=== PATIENT | female | born 1995 | race Caucasian/White ===

== ENCOUNTER 2018-08-17 14:39 | Inpatient (IN) | payer OTHER ==
[2018-08-17] MEDS ORDERED: METHYLERGONOVINE 0.2 MG/ML 1 ML AMP IM PRN (16:02)
[2018-08-17] MEDS ORDERED: LIDOCAINE 0.5% (PF) 5 MG/ML (50 ML SDV) SQ PRN (16:02)
[2018-08-17] MEDS ORDERED: CARBOPROST TROMETHAMINE 250 MCG/ML 1 ML AMP IM PRN (16:02)
[2018-08-17] MEDS ORDERED: PENICILLIN G POTASSIUM 5,000,000 UNIT in DEXTROSE 5% IN WATER 100 ML IVPB STA ×2 (16:02)
[2018-08-17] MEDS ORDERED: TERBUTALINE 1 MG/ML VIAL SQ PRN (16:02)
[2018-08-17] MEDS ORDERED: OXYTOCIN 10 UNIT/ML 1 ML VIAL IM PRN (16:02)
[2018-08-17] MEDS: LACTATED RINGERS 1,000 ML IV SCH ×2 (16:34→18:47)
[2018-08-17 16:52] LABS: Basophils % (A) 0 %; Eosinophils # (A) 0.2 k/uL (0-0.7); Eosinophils % (A) 1 %; HCT 33.3 % (34.0-46.0); Lymphocytes # (A) 1.4 k/uL (1.0-4.8); Lymphocytes % (A) 11 %; MCH 31.8 pg (25.0-35.0); MCV 88.4 fL (80.0-100.0); Mean Platelet Volume 7.6; Monocytes # (A) 0.6 k/uL (0-1.0); Monocytes % (A) 5 %; Neutrophils # (A) 10.5 k/uL (1.3-7.7); Neutrophils % (A) 82 %; Platelet Count 289 k/uL (150-450); RBC 3.77 m/uL (3.80-5.40); WBC 12.9 k/uL (3.8-10.6)
[2018-08-17 16:58] LABS: Amorphous Sediment,Urine Rare /hpf; Appearance,Urine Clear (Clear); Bacteria,Urine Rare /hpf; Bilirubin,Urine Negative (Negative); Blood,Urine Negative (Negative); Color,Urine Yellow; Glucose,Urine (UA) Negative (Negative); Ketones,Urine Negative (Negative); Leukocyte Esterase,Urine Small (Negative); Mucus,Urine Rare /hpf; Nitrite,Urine Negative (Negative); Protein,Urine Negative (Negative); RBC,Urine <1 /hpf (0-5); Specific Gravity,Urine 1.011 (1.001-1.035); Squamous Epithelial Cell,Urine 10 /hpf (0-4); Urobilinogen,Urine <2.0 mg/dL (<2.0); WBC,Urine 1 /hpf (0-5)
--- NOTE | 2018-08-17 17:00 | P.HPOB ---
History of Present Illness H&P Date: 08/17/18 Chief Complaint: Abdominal cramping This is a 23-year-old 2 para 1001 woman who has an estimated due date of 09/10/2018 based on second trimester ultrasound who presents to labor and delivery with complaints of lower abdominal cramping. She has not had care since April when she moved to the area. She is not yet established with an stockholder. Prior to that she was seen in the [place] area and did have some care there including an ultrasound to establish her due date. Upon initial evaluation in labor and delivery triage her cervix was 3 cm dilated and 1 hour later she was 5 cm dilated despite complaining of only the mild contractions. She denies leakage of fluid or vaginal bleeding. Obstetric history is significant for a term normal spontaneous vaginal delivery in 2017 of a 7 lbs. 10 oz. male . She denies complications with that . Attempt was made to obtain record from [place] however at this time and is unavailable. labs are pending. Review of Systems All systems: negative Past Medical History Past Medical History: No Reported History Additional Past Medical History / Comment(s): 2017 History of Any Multi-Drug Resistant Organisms: None Reported Past Surgical History: No Surgical Hx Reported Past Anesthesia/Blood Transfusion Reactions: No Reported Reaction Past Psychological History: No Psychological Hx Reported Smoking Status: Never smoker Past Alcohol Use History: None Reported Past Drug Use History: None Reported Medications and Allergies Home Medications Medication Instructions Recorded Confirmed Type No Known Home Medications 08/17/18 08/17/18 History Allergies Allergy/AdvReac Type Severity Reaction Status Date / Time No Known Allergies Allergy Verified 08/17/18 14:52 Exam Vital Signs Temp Pulse Resp BP 08/17/18 14:54 98.0 F 93 16 122/72 Intake and Output 08/17/18 08/17/18 08/17/18 06:59 14:59 22:59 Other: Weight 83.325 kg This is a pleasant, comfortable appearing, visibly gravid female. Targeted physical exam is performed. Abdomen is on gravid with fundal height consistent with gestational age of 36 weeks. On pelvic examination she is 5 cm dilated, 80% effaced and the vertex is in the -1 station. Artificial rupture of membranes is undertaken and copious clear fluid is noted. heart tones are reassuring by external monitoring and she is irregularly shona every 6-10 minutes. Results Result Diagrams: 08/17/18 16:25 Abnormal Lab Results - Last 24 Hours (Table) 08/17/18 Range/Units 16:25 WBC 12.9 H (3.8-10.6) k/uL RBC 3.77 L (3.80-5.40) m/uL Hct 33.3 L (34.0-46.0) % Neutrophils # 10.5 H (1.3-7.7) k/uL Assessment and Plan (1) 36 to 37 weeks gestation of Current Visit: Yes Status: Acute Code(s): WCA2490 - SNOMED Code(s): 071336964 (2) Insufficient care Current Visit: Yes Status: Acute Code(s): O09.30 - SUPRVSN OF PREG W INSUFFICIENT ANTENAT CARE, UNSP TRIMESTER SNOMED Code(s): 0793156295087 (3) Spontaneous onset of labor Current Visit: Yes Status: Acute Code(s): IMN4818 - SNOMED Code(s): 96554546 Plan: This is a 23-year-old 2 para 1001 woman who presents at 36-5/7 weeks gestation with minimal care. She is in early active labor. Group B strep status is unknown and therefore prophylactic antibiotics have been ordered. lab panel is pending. status is currently reassuring by external monitoring. Anticipate normal spontaneous vaginal delivery.
[2018-08-17 17:10] LABS: Amphetamine Screen,Urine Not Detected (NotDetected); Barbiturate Screen,Urine Not Detected (NotDetected); Benzodiazepines Screen,Urine Not Detected (NotDetected); Cocaine Screen,Urine Not Detected (NotDetected); Methadone Screen, Urine Not Detected (NotDetected); Opiate Screen,Urine Not Detected (NotDetected); Oxycodone Screen, Urine Not Detected (NotDetected); Phencyclidine Screen,Urine Not Detected (NotDetected); Tricyclic Antidepressant,Urine Not Detected (NotDetected); Urn Cannabinoid Scrn Not Detected (NotDetected)
[2018-08-17 17:14] VITALS: BMI 29.6
[2018-08-17] MEDS ORDERED: ROPIVACAINE 100 MG, fentaNYL (PF) 200 MCG in SODIUM CHLORIDE 0.9% 76 ML EPIDURAL ONE (19:15)
[2018-08-17] MEDS: OXYTOCIN 20 UNITS/1000 ML NS 1,000 ML IV SCH (20:04)
[2018-08-17] MEDS ORDERED: SIMETHICONE 80 MG CHEWABLE PO PRN (21:13)
[2018-08-17] MEDS ORDERED: ZOLPIDEM 5 MG TAB PO PRN (21:13)
[2018-08-17] MEDS ORDERED: LANOLIN CREAM 5 GM TUBE TOPICAL PRN (21:13)
[2018-08-17] MEDS ORDERED: diphenhydrAMINE 25 MG CAP PO PRN (21:13)
[2018-08-17] MEDS ORDERED: BENZOCAINE/MENTHOL SPRAY 1 GM/SPRAY AEROSOL TOPICAL PRN (21:13)
[2018-08-17] MEDS ORDERED: WITCH HAZEL 1 EACH MED..PAD TOPICAL PRN (21:13)
[2018-08-17] MEDS ORDERED: diphenhydrAMINE 50 MG CAP PO PRN (21:13)
[2018-08-17] MEDS ORDERED: diphenhydrAMINE 50 MG/ML 1 ML VIAL IVP PRN ×2 (21:13)
[2018-08-17] MEDS ORDERED: HYDROCORTISONE 2.5% RECTAL CREAM 30 GM TUBE RECTAL PRN (21:13)
--- NOTE | 2018-08-17 21:13 | P.PROBDLV ---
Vaginal Delivery Note - . Vaginal Delivery Note: Findings: Male infant in the vertex presentation with Apgars of 8 at 1 minute and 9 at 5 minutes. Weight pending. Intact, three-vessel cord placenta. No perineal lacerations. Delivery summary: This is a 23-year-old 2 para 1001 woman who presented at 36-5/7 weeks gestation gestation with minimal care. She was in early active labor. On admission she was 5 cm dilated and progressed to 8 cm at which time she had received an epidural anesthetic. She received Pitocin augmentation at this point and reach complete cervical dilation after approximately 5 minute first stage of labor. heart tones were stable throughout the first stage of labor. With strong maternal effort she did push the baby rapidly to at which time she was repositioned, prepped and draped in the dorsal modified lithotomy position. With additional maternal effort the head delivered from the left occiput anterior position. The anterior followed by the posterior shoulders were delivered without difficulty and the rest the infant was delivered onto the field. The nose and mouth were bulb suctioned. The was placed on the maternal abdomen. The cord was clamped and cut after it stopped pulsating. Apgars were 8 at 1 minute and 9 at 5 minutes. Weight is pending. The perineum was inspected and no lacerations were noted. An intact, three-vessel cord placenta was delivered after approximately 4 minute third stage of labor. The patient received Pitocin following delivery of the placenta. The vagina and cervix were further inspected and no lacerations were noted. The uterus was massaged and was noted to be firm at the level of the umbilicus. EBL was less than 150 mL's. All counts were correct. Mother and were doing well post delivery in the room.
[2018-08-17] MEDS ORDERED: OXYTOCIN 20 UNITS/1000 ML NS 1,000 ML IV SCH (21:15)
[2018-08-18] MEDS: ACETAMINOPHEN TAB 325 MG TAB PO PRN ×2 (00:22→23:40)
[2018-08-18 08:08] LABS: Basophils % (A) 0 %; Eosinophils # (A) 0.1 k/uL (0-0.7); Eosinophils % (A) 1 %; HCT 31.2 % (34.0-46.0); HGB 10.5 gm/dL (11.4-16.0); Lymphocytes # (A) 1.5 k/uL (1.0-4.8); Lymphocytes % (A) 13 %; MCH 30.2 pg (25.0-35.0); MCHC 33.7 g/dL (31.0-37.0); MCV 89.6 fL (80.0-100.0); Mean Platelet Volume 7.3; Monocytes # (A) 0.7 k/uL (0-1.0); Monocytes % (A) 6 %; Neutrophils # (A) 9.2 k/uL (1.3-7.7); Neutrophils % (A) 79 %; Platelet Count 286 k/uL (150-450); RBC 3.49 m/uL (3.80-5.40); RDW 14.3 % (11.5-15.5); WBC 11.7 k/uL (3.8-10.6)
[2018-08-18] MEDS: IBUPROFEN 600 MG TAB PO PRN ×2 (08:13→20:34)
[2018-08-18] MEDS: SENNOSIDES-DOCUSATE SODIUM 1 EACH TAB PO SCH ×2 (08:14→21:23)
--- NOTE | 2018-08-18 08:35 | P.PNOBGVD ---
Subjective - Subjective Principal diagnosis: day 1 Interval history: Complaining of some uterine cramping, managed with ibuprofen. Decreasing lochia. Patient reports: Reports appetite normal, Reports voiding normally, Reports pain well controlled, Reports ambulating normally : doing well (In special care nursery) Objective - Latest Vital Signs Latest vital signs: Vital Signs Temp Pulse Pulse Resp BP 08/18/18 08:00 97.4 F L 76 18 136/88 08/18/18 04:00 98.2 F 60 16 116/74 08/18/18 00:00 98.1 F 88 16 115/62 08/17/18 23:15 106 H 16 116/57 08/17/18 22:45 116 H 16 139/69 08/17/18 22:15 97 16 130/61 08/17/18 22:00 69 16 126/68 08/17/18 21:45 78 16 120/58 08/17/18 21:30 89 16 141/62 08/17/18 21:15 97.4 F L 72 16 120/63 08/17/18 16:01 98.0 F 93 16 122/72 08/17/18 14:54 98.0 F 93 16 122/72 Intake and Output 08/17/18 08/18/18 08/18/18 22:59 06:59 14:59 Intake Total 1100 Balance 1100 Intake: IV 1000 Lactated Ringers 1,000 ml 1000 @ 125 mls/hr IV .Q8H [facility] Rx#:[id number] Intake, IV Titration 100 Amount Penicillin G Potassium 5, 100 000,000 unit In Dextrose 5% in Water 100 ml @ 100 mls/hr IVPB ONCE STA Rx#: [id number] Other: # Voids 1 1 Weight 83.325 kg - Exam Extremities: Present: normal Abdomen: Present: normal appearance, soft Uterus: Present: normal, firm. Absent: tenderness - Labs Labs: Abnormal Lab Results - Last 24 Hours (Table) 08/17/18 08/17/18 08/18/18 Range/Units 16:25 16:25 07:14 WBC 12.9 H 11.7 H (3.8-10.6) k/uL RBC 3.77 L 3.49 L (3.80-5.40) m/uL Hgb 10.5 L (11.4-16.0) gm/dL Hct 33.3 L 31.2 L (34.0-46.0) % Neutrophils # 10.5 H 9.2 H (1.3-7.7) k/uL Ur Leukocyte Esterase Small H (Negative) Ur Squamous Epith Cells 10 H (0-4) /hpf Amorphous Sediment Rare H (None) /hpf Urine Bacteria Rare H (None) /hpf Urine Mucus Rare H (None) /hpf Assessment and Plan (1) 36 to 37 weeks gestation of Current Visit: Yes Status: Acute Code(s): [id number] - SNOMED Code(s): 198424989 (2) Insufficient care Current Visit: Yes Status: Acute Code(s): O09.30 - SUPRVSN OF PREG W INSUFFICIENT ANTENAT CARE, UNSP TRIMESTER SNOMED Code(s): 7237522973958 (3) Spontaneous onset of labor Current Visit: Yes Status: Acute Code(s): TQR8162 - SNOMED Code(s): 78518776 (4) Normal spontaneous vaginal delivery Current Visit: Yes Status: Acute Code(s): O80 - ENCOUNTER FOR FULL-TERM UNCOMPLICATED DELIVERY SNOMED Code(s): 51687574 (5) Rh negative, maternal Current Visit: Yes Status: Acute Code(s): O09.899 - SUPERVISION OF OTHER HIGH RISK PREGNANCIES, UNSP TRIMESTER; Z67.91 - UNSPECIFIED BLOOD TYPE, RH NEGATIVE SNOMED Code(s): 847222888 Plan: day 1 status post normal spontaneous vaginal delivery. and special care nursery for observation. Anticipate discharge home tomorrow.
--- NOTE | 2018-08-18 08:45 | P.MSEPDOC ---
Presenting Problems - Arrival Data Date of Arrival on Unit: 08/17/18 Time of Arrival on Unit: 16:00 Mode of Transport: Ambulatory - Complaint OB-Reason for Admission/Chief Complaint: Pain Comment: Intermittent pelvic and back pain occuring for a few days that happens after extended periods of laying down or walking. Medical History - Information : 2 Para: 1 Term: 1 : 0 Abortions: Spontaneous or Elective: 0 Number of Living Children: 1 - Gestational Age Gestational Age by CARISA (wks/days): 36 Weeks and 4 Days - History Comment: No care since 04/2018, GBS unknown Review of Systems - Review of Systems Constitutional: No problems Breast: No problems ENT: No problems Cardiovascular: No problems Respiratory: No problems Gastrointestinal: No problems Genitourinary: No problems Musculoskeletal: No problems Neurological: No problems Skin: No problems Vital Signs - Temperature Temperature: 97.4 F Temperature Source: Oral - Pulse Pulse Oximetery Pulse Rate: 60 Pulse Assessment Method: Automatic Cuff Left Brachial Pulse Rate: 76 Pulse Assessment Method: Automatic Cuff - Respirations Respiratory Rate: 18 Oxygen Delivery Method: Room Air - Blood Pressure Sitting Blood Pressure: 136/88 Blood Pressure Mean: 104 Blood Pressure Source: Automatic Cuff Medical Screen Scoring (Pre) - Cervical Exam Dilation: 1-3 cm = 1 Effacement: More than 50% = 2 Membranes: Intact - Uterine Contractions Frequency: > 5 minutes apart = 1 Duration: > 40 seconds = 2 Intensity: N/A - Maternal Vital Signs Maternal Temperature: N/A Maternal Blood Pressure: N/A Signs of Preeclampsia: N/A Maternal Respirations: N/A - Pain Assessment Pain Location and Character: Pelvic Pain Scale Used: Numeric (1 - 10) Pain Intensity: 0 - Maternal Trauma Maternal Trauma: N/A - Assessment Baseline FHR: 135 Heart Rate - NICHD Category: Category I (Normal) = 0 NST: Reactive Position: N/A Station: N/A - Total Score Total Score (Pre): 6 - Level of Risk Level of Risk: Medium (6-9) Physician Notification (Pre) - Physician Notified Physician Notified Date: 08/17/18 Physician Notified Time: 14:43 Physician/Practitioner Notifed:: Dr. Pineda - Notification Comment Comment: Orders given check cervix, and recheck in one hour if no change made, okay to discharge patient home with instructions. Call physician at [phone] with vaginal exam, orders given to admit patient for labor, initiate antibiotics for gbs unknown and obtain blood work. Disposition - Disposition OB Disposition: Admit, LDRP Suite Transferred to:: Suite 14 I agree with the RN Medical Screening Exam: Yes Risk & Benefit of care provided described in d/c instruction: Yes Diagnosis: o8o
[2018-08-18 13:51] LABS: HIV 1 AB Non-Reactive (Non-Reactive); HIV AB P24 Non-Reactive (Non-Reactive); HIV P24 AG Non-Reactive (Non-Reactive)
[2018-08-18] MEDS ORDERED: DIPH,PERTUS(ACELL)TETVAC-LF 0.5 ML VIAL IM ONE (18:22)
[2018-08-18] MEDS ORDERED: INFLUENZA VACCINE (6 MOS+) 60 MCG/0.5 ML SYRINGE IM ONE (18:23)
[2018-08-18] MEDS ORDERED: Rhogam IMMUNE GLOBULIN 1,500 UNIT/1 ML IM ONE (18:49)
[2018-08-18] MEDS: PENICILLIN G POTASSIUM 2,500,000 UNIT in DEXTROSE 5% IN WATER 100 ML IVPB SCH ×6 (19:49→21:24)
[2018-08-18] MEDS: OXYTOCIN 20 UNITS/1000 ML NS 1,000 ML IV SCH (21:23)
[2018-08-19] MEDS: IBUPROFEN 600 MG TAB PO PRN ×2 (04:59→11:55)
[2018-08-19 08:44] VITALS: BP 110/73; PULSE 81; RESP 18; TEMP 98.5
[2018-08-19] MEDS: ACETAMINOPHEN TAB 325 MG TAB PO PRN (09:35)
[2018-08-19] MEDS: SENNOSIDES-DOCUSATE SODIUM 1 EACH TAB PO SCH (09:36)
--- NOTE | 2018-08-19 12:30 | P.DS ---
Providers Date of admission: 08/17/18 15:57 Expected date of discharge: 08/19/18 Attending physician: Nyla Pineda Primary care physician: Stated None - Discharge Diagnosis(es) (1) 36 to 37 weeks gestation of Current Visit: Yes Status: Acute (2) Insufficient care Current Visit: Yes Status: Acute (3) Spontaneous onset of labor Current Visit: Yes Status: Acute (4) Normal spontaneous vaginal delivery Current Visit: Yes Status: Acute (5) Rh negative, maternal Current Visit: Yes Status: Acute Hospital Course: This is a 23-year-old 2 now para 2 woman who presented at 36+ weeks gestation in spontaneous active labor. She had had on minimal care in the months prior to presentation. Following admission she was 5+ centimeters dilated and underwent artificial rupture of membranes. She received an epidural anesthetic. Following the epidural she received Pitocin augmentation. She went on to have a rapid and uncomplicated delivery of a liveborn male over an intact perineum. was admitted to special care nursery for observation secondary to gestational age and unknown group B strep status. The patient did receive prophylactic antibiotics during her labor. On day #1 she was ambulating and voiding without difficulty. She did have some uterine edge with ibuprofen. Her lochia was decreasing and by day #2 she was doing very well. Her vital signs were stable and her lochia was minimal. She was therefore discharged home with routine instructions for care and follow-up. Procedures: Normal spontaneous vaginal delivery Patient Condition at Discharge: Good Plan - Discharge Summary New Discharge Prescriptions: No Action No Known Home Medications Discharge Medication List No Known Home Medications 08/17/18 [History]
== END 2018-08-19 12:50 | disposition home or self-care (01) | DRG 807 ==
LOC: FBPOP 14:39 → 4FBP 15:57
PROVIDERS: ADMIT Obstetrics & Gynecology; ATTEND Obstetrics & Gynecology
PROC: 10907ZC Drainage of Amniotic Fluid, Therapeutic from Products of Conception, Via Natural or Artificial Opening (ICD-10-PCS; principal; 2018-08-17)
PROC: 10E0XZZ Delivery of Products of Conception, External Approach (ICD-10-PCS; principal; 2018-08-17)
PROC: 3E0R3NZ Introduction of Analgesics, Hypnotics, Sedatives into Spinal Canal, Percutaneous Approach (ICD-10-PCS; principal; 2018-08-17)
PROC: 00HU33Z Insertion of Infusion Device into Spinal Canal, Percutaneous Approach (ICD-10-PCS; principal; 2018-08-17)
DX: O60.14X0 Preterm labor third trimester with preterm delivery third trimester, not applicable or unspecified (principal); Z37.0 Single live birth; Z3A.37 37 weeks gestation of pregnancy
CPT/HCPCS: 59025; 80306; 81001; 82947; 85025; 85461; 86762; 86780; 86850; 86900; 86901; 87340; 87390; 90686; 90715; 99213